=== PATIENT | male | born 1990 | race Caucasian/White ===

== ENCOUNTER 2020-04-03 17:42 | Emergency (ER) | payer OTHER ==
[~2020-04-03] VITALS: Ht 165.1 cm; Wt 76.2 kg
[2020-04-03 18:02] VITALS: BP 122/78
--- NOTE | 2020-04-03 18:23 | NUR ---
BIB self () from work via W/C s/p accident with heavy equipment, puncture/cut to right knee bleeding. States it isn't painful. NKDA, denies PMH Dressed with ABD pad and [place] wrap A, A, Ox4, cooperative, VVS in NAD Resp even and unlabored, HOB elevated. Moving all exts w/o difficulty, gait steady Awaiting evaluation by MD Will continue to monitor
--- NOTE | 2020-04-03 18:25 | NUR ---
Dr. Bianchi at bedside to examine patient
[2020-04-03] MEDS ORDERED: BACITRACIN OINT 500 UNITS/GM PKT TP ONE (18:40)
[2020-04-03] MEDS ORDERED: MORPHINE SULFATE 2 MG/ML SYR IM ONE (18:40)
[2020-04-03] MEDS ORDERED: LIDOCAINE/EPI 1% 1:100000 20 ML VIAL INJ ONE (18:40)
--- NOTE | 2020-04-03 19:00 | NUR ---
Tetanus and morphine IM administered
--- NOTE | 2020-04-03 19:12 | NUR ---
Set up for THONG Bianchi to suture patient's right knee, 4.0 prolene given
--- NOTE | 2020-04-03 19:20 | NUR ---
RECEIVED REPORT FROM LEE JARQUIN
--- NOTE | 2020-04-03 19:23 | NUR ---
Detailed report given to MILKA Dutta heel room supervisor for continuity Orders and meds reviewed, questions answered
--- NOTE | 2020-04-03 19:53 | NUR ---
BACITRACIN WAS PLACED ON PTS R KNEE. PTS WOUND WAS THEN COVERED IN A NON ADHERENT GAUZE AND A [place] BANDAGE WAS PLACED TO WRAP WOUND. PTS PMSC WNL.
--- NOTE | 2020-04-03 19:58 | NUR ---
Patient discharged with v/s stable. Written and verbal after care instructions given and explained. Patient alert, oriented and verbalized understanding of instructions. Ambulatory with steady gait. All questions addressed prior to discharge. ID band removed. Patient advised to follow up with PMD. Rx of ROBAXIN AND IBUPROFEN given. Patient educated on indication of medication including possible reaction and side effects. Opportunity to ask questions provided and answered.
[2020-04-03 19:59] VITALS: BP 122/78
== END 2020-04-03 19:59 | disposition home or self-care (01) ==
LOC: MED 17:42
DX: S81.011A Laceration without foreign body, right knee, initial encounter (principal); M25.561 Pain in right knee; W26.9XXA Contact with unspecified sharp object(s), initial encounter; Y93.89 Activity, other specified; Y92.89 Other specified places as the place of occurrence of the external cause; Y99.8 Other external cause status
CPT/HCPCS: 12001; 73562; 90471; 90715; 96372; 99284; J2001; J2270; Q0092; 96360; 96361; 99291

== ENCOUNTER 2021-11-29 19:45 | Emergency (ER) | payer OTHER ==
[~2021-11-29] VITALS: Ht 162.6 cm; Wt 80.3 kg
[2021-11-29 20:09] VITALS: BP 134/67
--- NOTE | 2021-11-29 20:18 | NUR ---
PATIENT TO LOBBY
--- NOTE | 2021-11-29 20:40 | NUR ---
ERMD EXAMINING PATIENT IN TRIAGE
--- NOTE | 2021-11-29 21:05 | NUR ---
patient to CT
--- NOTE | 2021-11-29 21:05 | NUR ---
Clyde dia in [facility] - 11/29/21 at 2105 by DANA PT TAKEN TO CT
--- NOTE | 2021-11-29 21:12 | NUR ---
PT RETURN TO ER LOBBY FROM RADIOLOGY
[2021-11-29 21:49] LABS: BASOPHILS # (AUTO) 0.1 K/uL (0.00-0.22); BASOPHILS % (AUTO) 0.8 % (0.0-2.0); EOSINOPHILS # (AUTO) 0.1 K/uL (0-0.4); EOSINOPHILS % (AUTO) 0.7 % (0.0-4.0); HEMOGLOBIN 14.9 g/dL (12.0-18.0); LYMPHOCYTES % (AUTO) 23.4 % (20.5-51.1); MEAN CORPUSCULAR HEMOGLOBIN 29 pg (27-31); MEAN CORPUSCULAR HGB CONC 34 g/dL (33-37); MEAN CORPUSCULAR VOLUME 86.9 fL (80-94); MONOCYTES # (AUTO) 0.9 K/uL (0.8-1.0); MONOCYTES % (AUTO) 10.4 % (1.7-9.3); NEUTROPHILS # (AUTO) 5.4 K/uL (1.8-7.7); NEUTROPHILS % (AUTO) 64.7 % (42.2-75.2); PLATELET COUNT (AUTO) 237 K/uL (140-450); RED BLOOD CELL COUNT(AUTO) 5.07 MIL/uL (4.20-6.10); RED CELL DISTRIBUTION WIDTH 12.7 % (11.6-13.7); WHITE BLOOD COUNT (AUTO) 8.4 K/uL (4.8-10.8)
[2021-11-29 22:11] LABS: ALBUMIN 4.4 g/dL (3.4-5.0); ANION GAP 12.6 (8-16); CARBON DIOXIDE 29.2 mmol/L (21-32); CREATININE 0.9 mg/dL (0.6-1.3); POTASSIUM 3.8 mmol/L (3.5-5.1); TOTAL BILIRUBIN 0.8 mg/dL (0.0-1.0)
[2021-11-29] MEDS ORDERED: POLY15SO48 LEFT EYE (22:36)
[2021-11-29] MEDS ORDERED: PRED20TA5 PO (22:36)
[2021-11-29] MEDS ORDERED: VALA1TAB40 PO (22:36)
[2021-11-29 23:10] VITALS: BP 134/67
--- NOTE | 2021-11-29 23:11 | NUR ---
Patient discharged with v/s stable. Written and verbal after care instructions given and explained. Patient alert, oriented and verbalized understanding of instructions. Ambulatory with steady gait. All questions addressed prior to discharge. ID band removed. Patient advised to follow up with PMD. Rx of ARTIFICIAL TEARS, DELTASONE AND VALACYCLOVIR given. Patient educated on indication of medication including possible reaction and side effects. Opportunity to ask questions provided and answered.
== END 2021-11-29 23:11 | disposition home or self-care (01) ==
LOC: MED 19:45
DX: G51.0 Bell's palsy (principal); Z79.899 Other long term (current) drug therapy
CPT/HCPCS: 36415; 70450; 80053; 85025; 93005; 99285